=== PATIENT | female | born 1980 | race Caucasian/White ===

== ENCOUNTER → 2022-01-17 15:42 | Outpatient (CLI) | payer BC, SELFPAY ==
--- NOTE | ~2022-01-17 | MM_ITS ---
EXAMINATION: MM screening [facility] w [facility]i HISTORY: Baseline screening mammogram examination TECHNIQUE: Craniocaudal and mediolateral oblique 3-D tomosynthesis images were obtained and synthetic 2-D images were generated. CAD analysis was submitted and interpreted. COMPARISON: No prior mammogram is available for comparison at this institution. BREAST PARENCHYMAL COMPOSITION: The breasts are heterogeneously dense, which may obscure small masses . FINDINGS: There is no evidence of suspicious mass, calcification, or architectural distortion to sugg est malignancy in either breast. IMPRESSION: 1. No mammographic evidence of malignancy. 2. Recommend routine screening mammography in one year. BI-RADS Category 1: Negative Reviewed, dictated and finalized at location A.
== END ==
PROVIDERS: PCP Family Medicine; Visit Provider Family Medicine
DX: Z12.31 Encounter for screening mammogram for malignant neoplasm of breast (principal)
CPT/HCPCS: 77063; 77067

== ENCOUNTER 2022-06-13 17:06 | Emergency (ER) | payer BC, SELFPAY ==
--- NOTE | 2022-06-13 17:22 | ED.URI ---
HPI - URI/Sore Throat General Chief Complaint: Upper Respiratory Infection Stated Complaint: SORE THROAT/EARS Time Seen by Provider: 06/13/22 17:50 Source: patient and RN notes reviewed Mode of arrival: ambulatory Limitations: no limitations History of Present Illness HPI Narrative: 42-year-old female presents with concern for sore throat that started today, lymph node tenderness. Reports the child at home has strep throat. She denies fever, aches chills sweats. Reports she had a headache yesterday MD elicited complaint: sore throat Related Data Allergies Allergy/AdvReac Type Severity Reaction Status Date / Time cat dander Allergy Unknown Hives Verified 06/13/22 17:36 dog dander Allergy Unknown Hives Verified 06/13/22 17:36 egg Allergy Unknown Hives Verified 06/13/22 17:36 miconazole Allergy Unknown Rash Unverified 06/13/22 17:37 nut - unspecified Allergy Unknown lips swell Verified 04/09/18 08:50 and she get tightness in the chest and SOB tree nut Allergy Unknown Swelling Verified 06/13/22 17:36 of Lip/Tongue/Throat Review of Systems Review of Systems: CONSTITUTIONAL: Denies malaise, chills, sweats, or fever. EYES: Denies visual changes, redness, or discharge. ENT: Denies rhinorrhea, congestion, sinus pain, otalgia. Reports sore throat. CARDIOVASCULAR: Denies chest pain, palpitations, or edema. RESPIRATORY: Denies cough. Denies dyspnea. GASTROINTESTINAL: Denies abdominal pain, nausea, vomiting, diarrhea SKIN: Denies rash or itching. MUSCULOSKELETAL: Denies myalgia. NEUROLOGIC: Denies headache. All systems reviewed & are unremarkable except as noted in HPI and below PMFSH Past Medical History Medical History (Updated 06/13/22 @ 17:56 by Alisha Castro NP) Family hx of colon cancer grandfather Family History Family History Grandparent Family history of migraine headaches Hypertension Family history of eczema Family history of alcoholism Cerebrovascular accident Carcinoma of colon, Onset Age: 72 Family history of malignant melanoma, Onset Age: 60 Family history of primary malignant neoplasm of liver, Onset Age: 73 Family history of malignant neoplasm of uterus, Onset Age: 65 Family history of coronary artery disease Family history of malignant neoplasm of ovary, Onset Age: 65 Diabetes mellitus Family history of cardiovascular disease Malignant neoplasm of prostate Family history of dementia Family history of mental disorder Depression Family history of hepatitis Family history of malignant neoplasm Family history of irritable bowel syndrome Father Family history of migraine headaches Patient's father is in good health Hypertension Sibling Family history of migraine headaches Patient's sister is in good health Hypertension Mother Patient's mother is in good health Other Family history of arthritis Family history of hypercholesterolemia Social History Social History Smoking status: Never smoker Alcohol intake: never Comments At time of signature, agree with nursing past medical, surgical, social and family history. There is no relevant family history pertinent to the presenting complaint Exam Narrative: GENERAL: Well-appearing, well-nourished, and in no acute distress. HEAD: Normocephalic EYES: PERRLA, conjunctivae clear ENT: Nares clear. Mucous membranes moist. TM pearly sinha with dull light reflex bilaterally; no tragal tenderness. Oropharynx erythematous without lesions. Tonsils not enlarged and without exudate, no drooling, no hoarseness, no trismus, uvula midline. NECK: Supple. No lymphadenopathy CHEST: Clear to auscultation, breath sounds equal. No wheezing, rhonchi, rales, or stridor. No respiratory distress, speaks in full sentences. HEART: Regular rate and rhythm. No murmur heard. SKIN: Warm, dry, no rash
[2022-06-13 17:30] VITALS: BP 114/73; PULSE 68; RESP 19; TEMP 36.3; O2SAT 100
== END 2022-06-13 17:58 | disposition home or self-care (01) ==
PROVIDERS: Emergency Provider Nurse Practitioner; PCP Family Medicine
DX: J02.0 Streptococcal pharyngitis (principal)
CPT/HCPCS: 87880; 99213; G0463

== ENCOUNTER 2022-10-12 11:28 | Outpatient (CLI) | payer BC, SELFPAY ==
[2022-10-12 19:25] LABS: Kit Draw Collected
== END 2022-10-12 11:29 | disposition home or self-care (01) ==
LOC: ANHGOSHLAB 11:31
PROVIDERS: PCP Family Medicine; Visit Provider Family Medicine
DX: R14.0 Abdominal distension (gaseous) (principal)
CPT/HCPCS: 36415

== ENCOUNTER 2023-01-02 08:43 | Emergency (ER) | payer BC, SELFPAY ==
--- NOTE | 2023-01-02 08:48 | ED.URI ---
HPI - URI/Sore Throat General Chief Complaint: Upper Respiratory Infection Stated Complaint: Strep symptoms Source: patient and RN notes reviewed Mode of arrival: ambulatory Limitations: no limitations History of Present Illness HPI Narrative: Patient is a 42-year-old female who presents to the [facility] with complaints of sore throat. Patient states that she developed a sore throat yesterday per and has worsened today. Patient states that her son tested positive for strep yesterday. She denies cough, congestion, headache, recent fever. she denies abdominal pain, nausea, vomiting, diarrhea. She is not experiencing any chest pain or shortness of breath. Related Data Allergies Allergy/AdvReac Type Severity Reaction Status Date / Time cat dander Allergy Unknown Hives Verified 01/02/23 09:00 dog dander Allergy Unknown Hives Verified 01/02/23 09:00 egg Allergy Unknown Hives Verified 01/02/23 09:00 miconazole Allergy Unknown Rash Verified 01/02/23 09:00 nut - unspecified Allergy Unknown lips swell Verified 01/02/23 09:00 and she get tightness in the chest and SOB tree nut Allergy Unknown Swelling Verified 01/02/23 09:00 of Lip/Tongue/Throat Review of Systems Review of Systems: CONSTITUTIONAL: Denies fever, chills, or sweats. EYES: Denies visual changes, redness, or discharge. ENT: Denies otalgia. Reports sore throat. CARDIOVASCULAR: Denies chest pain, palpitations, or edema. RESPIRATORY: Denies cough or dyspnea. GASTROINTESTINAL: Denies abdominal pain, nausea, vomiting, or diarrhea. GENITOURINARY: Denies dysuria or hematuria. SKIN: Denies rash or itching. MUSCULOSKELETAL: Denies back pain, joint pain, or myalgia. NEUROLOGIC: Denies headache, numbness, or weakness. Pertinent positives per HPI. PMF Past Medical History Medical History Family hx of colon cancer grandfather Family History Family History Grandparent Family history of migraine headaches Hypertension Family history of eczema Family history of alcoholism Cerebrovascular accident Carcinoma of colon, Onset Age: 72 Family history of malignant melanoma, Onset Age: 60 Family history of primary malignant neoplasm of liver, Onset Age: 73 Family history of malignant neoplasm of uterus, Onset Age: 65 Family history of coronary artery disease Family history of malignant neoplasm of ovary, Onset Age: 65 Diabetes mellitus Family history of cardiovascular disease Malignant neoplasm of prostate Family history of dementia Family history of mental disorder Depression Family history of hepatitis Family history of malignant neoplasm Family history of irritable bowel syndrome Father Family history of migraine headaches Patient's father is in good health Hypertension Sibling Family history of migraine headaches Patient's sister is in good health Hypertension Mother Patient's mother is in good health Other Family history of arthritis Family history of hypercholesterolemia Social History Social History Smoking status: Never smoker Alcohol intake: never Comments At the time of my signature, I reviewed and agree with the nursing past medical, surgical, social, and family history. There is no relevant family history pertinent to the patient complaint. Exam Narrative: GENERAL: This is a well-nourished, well-developed patient, in no apparent distress. HEAD: normocephalic, atraumatic. EYES: PERRL. Sclera clear/white. Vision is grossly intact. EARS: External ears normal, auditory canals clear and without drainage, TMs normal without perforation. Hearing grossly intact. NOSE: External nose normal with no obvious nasal discharge, nares without redness, no rhinorrhea. THROAT: Mucous membranes moist. Oropharyngeal
[2023-01-02 08:53] VITALS: BP 112/71; PULSE 74; RESP 16; TEMP 36.6; O2SAT 100
== END 2023-01-02 09:10 | disposition home or self-care (01) ==
PROVIDERS: Emergency Provider Nurse Practitioner; PCP Family Medicine
DX: B34.9 Viral infection, unspecified (principal)
CPT/HCPCS: 87081; 87880; 99213; G0463

== ENCOUNTER 2023-04-18 08:32 | Emergency (ER) | payer BC, SELFPAY ==
[2023-04-18 08:41] VITALS: BP 74/59; PULSE 70; RESP 16; TEMP 36.7; O2SAT 100
--- NOTE | 2023-04-18 08:45 | ED.EYEPROB ---
HPI - Eye Problem General Chief complaint: Eye Problems Stated complaint: EYE REDNESS/ITCHING Source: patient Mode of arrival: ambulatory Limitations: no limitations History of Present Illness HPI Narrative: 43y/o female presented for c/o bilateral eye irritation, onset 4 days. Endorses dryness, redness, and tightness. Started on the right eye, woke with it crusted and has had white discharge. Then started with the same symptoms on the left eye the following day. Denies itching, vision changes, foreign body sensation, or eye injury. Denies change in makeup or using eyelash glue. No treatment [employer]. chief complaint: eye pain Related Data Allergies Allergy/AdvReac Type Severity Reaction Status Date / Time cat dander Allergy Unknown Hives Verified 04/18/23 08:43 dog dander Allergy Unknown Hives Verified 04/18/23 08:43 egg Allergy Unknown Hives Verified 04/18/23 08:43 miconazole Allergy Unknown Rash Verified 04/18/23 08:43 nut - unspecified Allergy Unknown lips swell Verified 04/18/23 08:43 and she get tightness in the chest and SOB tree nut Allergy Unknown Swelling Verified 04/18/23 08:43 of Lip/Tongue/Throat Review of Systems Review of Systems: CONSTITUTIONAL: Denies body aches, fever, chills EYES:Endorses redness and dryness to both eyes; denies FB sensation, photophobia, swelling, visual changes ENT: Denies rhinorrhea, congestion, sore throat, or otalgia. CARDIOVASCULAR: Denies chest pain, palpitations RESPIRATORY: Denies cough or dyspnea. GASTROINTESTINAL: Denies abdominal pain, nausea, vomiting, or diarrhea. SKIN: Denies rash, itching, or wounds. MUSCULOSKELETAL: Denies back pain, joint pain, or myalgia. NEUROLOGIC: Denies headache, numbness, tingling, or weakness. All systems reviewed & are unremarkable except as noted in HPI and below PMFSH Past Medical History Medical History Family hx of colon cancer grandfather Family History Family History Grandparent Family history of migraine headaches Hypertension Family history of eczema Family history of alcoholism Cerebrovascular accident Carcinoma of colon, Onset Age: 72 Family history of malignant melanoma, Onset Age: 60 Family history of primary malignant neoplasm of liver, Onset Age: 73 Family history of malignant neoplasm of uterus, Onset Age: 65 Family history of coronary artery disease Family history of malignant neoplasm of ovary, Onset Age: 65 Diabetes mellitus Family history of cardiovascular disease Malignant neoplasm of prostate Family history of dementia Family history of mental disorder Depression Family history of hepatitis Family history of malignant neoplasm Family history of irritable bowel syndrome Father Family history of migraine headaches Patient's father is in good health Hypertension Sibling Family history of migraine headaches Patient's sister is in good health Hypertension Mother Patient's mother is in good health Other Family history of arthritis Family history of hypercholesterolemia Social History Social History Smoking status: Never smoker Alcohol intake: never Comments At time of signature, I have reviewed and agree with nursing past medical, surgical, social and family history unless otherwise noted. Please see nursing chart for further information. There is no relevant family history pertinent to the presenting complaint Exam Narrative: GENERAL: Well-appearing HEAD: Normocephalic, atraumatic. EYES: mild bilateral conjunctival injection, right eye with dried drainage; no eye lid swelling/redness, PERRLA, EOMI. Lid eversion shows no FB. ENT: Mucous membranes pink and moist. No rhinorrhea. TMs normal bilaterally. Throat normal. Uvula midline. CHEST: Clear to auscul
[2023-04-18 08:52] VITALS: BP 98/60; PULSE 68; RESP 18; O2SAT 98
== END 2023-04-18 08:54 | disposition home or self-care (01) ==
PROVIDERS: Emergency Provider Nurse Practitioner Family; PCP Family Medicine
DX: H10.9 Unspecified conjunctivitis (principal)
CPT/HCPCS: 99213; G0463

== ENCOUNTER 2023-05-09 15:05 | Outpatient (CLI) | payer BC, SELFPAY ==
--- NOTE | ~2023-05-09 | MM_ITS ---
EXAMINATION: MM screening [facility] BI w ji HISTORY: Screening TECHNIQUE: Craniocaudal and mediolateral oblique 3-D tomosynthesis images were obtained and synthetic 2-D images were generated. CAD analysis was submitted and interpreted. COMPARISON: 01/17/2022 BREAST PARENCHYMAL COMPOSITION: The breasts are heterogeneously dense, which may obscure small masses FINDINGS: There is no evidence of suspicious mass, calcification, or architectural distortion to sugg est malignancy in either breast. There has been no suspicious interval change. IMPRESSION: 1. No mammographic evidence of malignancy. 2. Recommend routine screening mammography in one year. 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
--- NOTE | ~2023-05-09 | US_ITS ---
EXAMINATION: US pelvic complete DATE: 05/09/2023 15:46 INDICATION: Pelvic fullness. Adnexal mass. TECHNIQUE: Multiple transabdominal sonographic images of the pelvis were obtained. COMPARISON: None. FINDINGS: The uterus measures 7.8 x 4.5 x 6.4 cm. There is no free fluid in the pelvis. The endometrial complex measures 16 mm in thickness. The right ovary measures 1.9 x 1.6 x 2.4 cm. The left ovary measures 3. 0 x 1.6 x 3.3 cm. There is normal vascular flow in the ovaries. IMPRESSION: 1. Normal pelvis. Reviewed, dictated and finalized at location E. 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 Normal pelvis.
== END 2023-05-09 15:06 ==
PROVIDERS: PCP Advanced Practice Midwife; Visit Provider Advanced Practice Midwife
DX: Z12.31 Encounter for screening mammogram for malignant neoplasm of breast (principal); R19.00 Intra-abdominal and pelvic swelling, mass and lump, unspecified site
CPT/HCPCS: 76856; 77063; 77067

== ENCOUNTER 2024-09-12 14:26 | Outpatient (CLI) | payer OTHER, SELFPAY ==
--- NOTE | ~2024-09-12 | MM_ITS ---
EXAMINATION: MM screening [facility] BI w ji HISTORY: Screening TECHNIQUE: Craniocaudal and mediolateral oblique 3-D tomosynthesis images were obtained and synthetic 2-D images were generated. CAD analysis was submitted and interpreted. COMPARISON: Comparison to multiple prior studies sequentially, with oldest reviewed study dated 01/17. BREAST PARENCHYMAL COMPOSITION: Dense: The breasts are heterogeneously dense, which may obscure small masses FINDINGS: There are multiple developing left breast masses in the left breast involving multiple quad rants. 2 there is a new focal asymmetry superiorly in the right breast on MLO view. IMPRESSION: 1. Multiple new left breast masses. New focal asymmetry in the superior aspect of the right breast on MLO view. 2. Additional mammographic views and possible breast ultrasound are recommended. BI-RADS Category 0: Incomplete: Needs additional imaging evaluation. Reviewed, dictated and finalized at location B. IMPRESSION: 1. Multiple new left breast masses. New focal asymmetry in the superior aspect of the right breast on MLO view. 2. Additional mammographic views and possible breast ultrasound are recommended . BI-RADS Category 0: Incomplete: Needs additional imaging evaluation.
== END 2024-09-12 14:27 | disposition home or self-care (01) ==
PROVIDERS: PCP Obstetrics & Gynecology Gynecology; Visit Provider Family Medicine
DX: Z12.31 Encounter for screening mammogram for malignant neoplasm of breast (principal); R92.8 Other abnormal and inconclusive findings on diagnostic imaging of breast
CPT/HCPCS: 77063; 77067

== ENCOUNTER 2024-09-29 09:27 | Outpatient (CLI) | payer OTHER, SELFPAY ==
--- NOTE | ~2024-09-29 | MMUS_ITS ---
EXAMINATION: MM diagnostic [facility] BI w ji, US breast BI complete HISTORY: Follow-up bilateral breast asymmetries/masses. TECHNIQUE: Additional 3-D tomosynthesis images of the breasts were performed and synthetic 2-D images were generated. CAD analysis was submitted and interpreted. High resolution complete bilateral breas t ultrasound was performed. COMPARISON: Comparison to multiple prior studies sequentially, with oldest reviewed study dated 01/17. BREAST PARENCHYMAL COMPOSITION: Dense: The breasts are heterogeneously dense, which may obscure small masses FINDINGS: MAMMOGRAPHIC FINDINGS: There is no evidence for malignancy in the right breast. There is a focal mass in the lower central a spect of the left breast, middle third. ULTRASOUND: Complete US of all 4 quadrants of the breast/s and retroareolar region was reviewed. There are multip le bilateral simple and complicated cysts of the breasts. There is a cluster of cysts measuring up to 1.3 cm in the 5:00 position, 4 cm from the nipple in the left breast likely corresponding to the [facility] mographic finding. No suspicious masses to suggest malignancy. IMPRESSION: 1. No evidence for malignancy in either breast. Benign findings. 2. Routine yearly screening mammogram and regular clinical breast examination are recommended. BI-RADS Category 2: Benign finding(s). Reviewed, dictated and finalized at location B. IMPRESSION: 1. No evidence for malignancy in either breast. Benign findings. 2. Routine yearly screening mammogram and regular clinical breast examination a re recommended. BI-RADS Category 2: Benign finding(s).
== END 2024-09-29 09:28 | disposition home or self-care (01) ==
LOC: MICIMG 09:28
PROVIDERS: PCP Obstetrics & Gynecology Gynecology; Visit Provider Family Medicine
DX: R92.8 Other abnormal and inconclusive findings on diagnostic imaging of breast (principal); N60.11 Diffuse cystic mastopathy of right breast; N60.12 Diffuse cystic mastopathy of left breast
CPT/HCPCS: 76641; 77062; 77066; G0279